=== PATIENT | female | born 1980 | race Two or more races ===

== ENCOUNTER 2020-12-07 13:52 | Emergency (ER) | payer MEDICAID, OTHER ==
[~2020-12-07] VITALS: Ht 167.6 cm; Wt 72.6 kg
[2020-12-07 14:23] VITALS: BP 123/60
== END 2020-12-07 16:03 | disposition home or self-care (01) ==
LOC: EDBD 13:52 → ER 13:52
DX: R55 Syncope and collapse (principal); R07.89 Other chest pain
CPT/HCPCS: 70450; 71250; 73610